=== PATIENT | female | born 2000 | race African-American/Black ===

== ENCOUNTER 2023-11-18 09:13 | Emergency (ER) | payer BC, MEDICAID ==
[~2023-11-18] VITALS: Ht 157.5 cm; Wt 68.0 kg
[2023-11-18 09:30] VITALS: O2SAT 99
[2023-11-18] MEDS ORDERED: NAPR-677 MT (09:55)
[2023-11-18] MEDS ORDERED: KETOROLAC 30MG/ML VIAL IM ONE (10:00)
[2023-11-18 10:05] VITALS: BP 122/74; PULSE 68; RESP 16; TEMP 37.00296; O2SAT 99
== END 2023-11-18 10:07 | disposition home or self-care (01) ==
LOC: ER 09:13
DX: H92.01 Otalgia, right ear (principal)
CPT/HCPCS: 99282

== ENCOUNTER 2024-04-01 12:01 | Emergency (ER) | payer BC, MEDICAID ==
[~2024-04-01] VITALS: Ht 157.5 cm; Wt 68.0 kg
[~2024-04-01 12:01] MED LIST: NAPR-677 MT
[2024-04-01 12:12] VITALS: BP 101/68; PULSE 98; RESP 16; TEMP 36.8; O2SAT 100
[2024-04-01 12:51] VITALS: TEMP 98.2
[2024-04-01] MEDS: LIDOCAINE HCL 1% 20ML VIAL INFIL ONE (12:51)
[2024-04-01] MEDS: ACETAMINOPHEN 325MG TABLET PO ONE (12:51)
[2024-04-01] MEDS ORDERED: CEPH500C2 MT (13:17)
[2024-04-01] MEDS ORDERED: ACET-2708 MT (13:20)
== END 2024-04-01 14:34 | disposition home or self-care (01) ==
LOC: ER 12:05
DX: L02.413 Cutaneous abscess of right upper limb (principal); Z79.1 Long term (current) use of non-steroidal anti-inflammatories (NSAID)
CPT/HCPCS: 10060; 99283; J3490; Z7610 ×4

== ENCOUNTER 2024-04-04 08:32 | Emergency (ER) | payer MEDICAID ==
[~2024-04-04] VITALS: Ht 160 cm; Wt 66.0 kg
[~2024-04-04 08:32] MED LIST changes: +ACET-2708 MT; +CEPH500C2 MT
[2024-04-04 08:47] VITALS: O2SAT 99
[2024-04-04] MEDS ORDERED: SULF1TAB48 MT (10:28)
[2024-04-04 10:35] VITALS: BP 111/68; PULSE 88; RESP 18; TEMP 36.9; O2SAT 99
== END 2024-04-04 10:35 | disposition home or self-care (01) ==
LOC: ER 08:32
DX: R05.9 Cough, unspecified (principal); L02.413 Cutaneous abscess of right upper limb
CPT/HCPCS: 99283; Z7610 ×2